=== PATIENT | female | born 1995 | race Caucasian/White ===

== ENCOUNTER 2019-09-01 18:21 | Emergency (ER) | payer MEDICAID ==
[~2019-09-01] VITALS: Ht 167.6 cm; Wt 81.6 kg
[2019-09-01 18:28] VITALS: Ht 167.6 cm; Wt 81.6 kg
[2019-09-01 19:21] VITALS: BP 145/87
== END 2019-09-01 19:21 | disposition home or self-care (01) ==
LOC: ED 18:21
DX: N39.0 Urinary tract infection, site not specified (principal)

== ENCOUNTER 2019-12-05 17:07 | Emergency (ER) | payer MEDICAID ==
[~2019-12-05] VITALS: Ht 167.6 cm; Wt 79.8 kg
[2019-12-05 17:12] VITALS: Ht 167.6 cm; Wt 79.8 kg
[2019-12-05 17:58] LABS: UA SPECIFIC GRAVITY >=1.030 (1.005-1.035); microscopic required? YES; urine erythrocyte 3+ (NEGATIVE)
[2019-12-05 18:19] VITALS: BP 125/79
== END 2019-12-05 18:20 | disposition home or self-care (01) ==
LOC: ED 17:07
PROVIDERS: Specialist
DX: N39.0 Urinary tract infection, site not specified (principal)